=== PATIENT | male | born 1995 | race Caucasian/White ===

== ENCOUNTER 2020-05-01 17:48 | Emergency (ER) | payer BC ==
[~2020-05-01] VITALS: Ht 175 cm; Wt 90.0 kg
--- NOTE | 2020-05-01 18:23 | ED Upper Extremity ---
General Chief Complaint: Upper Extremity Stated Complaint: L ARM SWOLLEN/NUMB - POST VACCINATION Nursing Triage Note: patient states he recieved COVID vaccine, noticed redness and swelling at site Nursing Sepsis Screen: No Definite Risk Source: patient Exam Limitations: no limitations History of Present Illness Date Seen by Provider: May 01, 2020 Time Seen by Provider: 18:10 Initial Comments This 25-year-old young man presents to the ER on day 4 after the maternal COVID- 19 vaccination. He has had progressive irritation of the left upper arm, particularly over the last 24 hours. He has marked swelling and erythema extending from the mid deltoid area down to the elbow. It is nearly circumferential. He describes a burning sensation with distal numbness down to the fingers. He denies any fever. He denies ever having this type of reaction to a vaccination in the past. He has had some slight improvement over the past few hours. He took Benadryl and Tylenol which seemed to help. Allergies and Home Medications Allergies Coded Allergies: sulfamethoxazole (Verified Adverse Reaction, Intermediate, Gastrointestinal upset, 05/01/20) trimethoprim (Verified Adverse Reaction, Intermediate, Gastrointestinal upset, 05/01/20) Uncoded Allergies: COVID-19 vaccine, Maderna (Adverse Reaction, Intermediate, Severe swelling, erythema, numbness of left arm, 05/01/20) Home Medications Cephalexin 500 Mg Tablet, 500 MG PO QID Prescribed by: FEDE CANCINO on 05/01/20 1830 Patient Home Medication List Home Medication List Reviewed: Yes Review of Systems Constitutional: no symptoms reported EENTM: no symptoms reported Respiratory: no symptoms reported Cardiovascular: no symptoms reported Gastrointestinal: no symptoms reported Genitourinary: no symptoms reported Musculoskeletal: no symptoms reported Skin: see HPI Psychiatric/Neurological: See HPI Past [id number]-[id number] Hx Past Med/Social Hx: Reviewed and Corrections made Patient Social History Alcohol Use: Denies Use Smoking Status: Never a Smoker Recent Infectious Disease Expo: No Past Medical History Surgeries: No Respiratory: No Cardiac: No Neurological: No Genitourinary: No Gastrointestinal: Yes (History of GI bleeding) Musculoskeletal: No Endocrine: No HEENT: No Cancer: No Psychosocial: No Family Medical History Reviewed and Corrections made Renal Disease Physical Exam Vital Signs Vital Signs - First Documented 05/01/20 18:12 Temp 35.9 Pulse 91 Resp 20 B/P (MAP) 161/119 (133) Pulse Ox 97 O2 Delivery Room Air Capillary Refill : Less Than 3 Seconds Height, Weight, BMI Height: '" Weight: lbs. oz. 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 The first dose was administered in the ER. See discharge instructions for further discussion. Patient also mentioned in passing regarding his medication allergies that he has a history of rectal bleeding. I advised him to discuss this with his primary care provider and discuss the possibility of colonoscopy. Departure Impression Primary Impression: Vaccination reaction Qualified Codes: T50.Z95A - Adverse effect of other vaccines and biological substances, initial encounter Disposition: 01 HOME, SELF-CARE Condition: Improved Departure-Patient Inst. Patient Instructions: COVID-19 Vaccine (mRNA) Moderna FDA Fact Sheet Add. Discharge Instructions: Elevate your arm to the level of your heart as much as possible to reduce pain and swelling. You may additionally apply ice in 20-minute intervals to reduce pain and swelling. Antihistamines such as Benadryl (diphenhydramine) or nondrowsy antihistamine such as Claritin (loratadine) may be used to control itching. You may use Tylenol and/or ibuprofen for pain. Call with questions or concerns. Return to care if you have worsening of condition including significant spreadin g of redness, worsening of numbness, fever, etc. Although it is unlikely you have an infection, complete the antibiotics as pres cribed as a precaution. All discharge instructions reviewed with patient and/or family. Voiced understanding. Scripts Cephalexin (Cephalexin) 500 Mg Tablet 500 MG PO QID, #28 TAB Prov: FEDE KRISHNAMURTHY MD 05/01/20 FEDE KRISHNAMURTHY MD May 01, 2020 18:23
[2020-05-01] MEDS ORDERED: CEPH500T PO (18:30)
[2020-05-01] MEDS ORDERED: CEPHALEXIN 250 MG (KEFLEX) CAP PO ONE (18:30)
[2020-05-01 18:47] VITALS: BP 136/92
== END 2020-05-01 18:49 | disposition home or self-care (01) ==
LOC: ER 17:51
DX: T88.1XXA Other complications following immunization, not elsewhere classified, initial encounter (principal); I10 Essential (primary) hypertension; Z88.2 Allergy status to sulfonamides; Z88.1 Allergy status to other antibiotic agents; Z88.7 Allergy status to serum and vaccine
CPT/HCPCS: 99283